=== PATIENT | female | born 1945 | race Caucasian/White ===

== ENCOUNTER 2018-03-23 06:24 | Day surgery (SDC) | payer OTHER ==
--- NOTE | 2018-03-15 16:36 | EKG ---
Test Date: 2018-03-15 Test Time: 16:01:05 Superintendent Job: DAPHNE MEASUREMENT RESULTS: Intervals: Rate: 68 CO: 154 QRSD: 78 QT: 394 QTc: 418 [place]: P: 63 CO: 154 QRS: 48 T: 53 INTERPRETIVE STATEMENTS: Normal sinus rhythm Normal ECG No previous ECG available for comparison Electronically Signed On 03-15-18 16:35:45 CDT by Kiet Saleem
[2018-03-15 16:57] LABS: Absolute Lymphocytes (CBC) 1.4 K/uL (0.7-4.9); Absolute Monocytes 0.3 K/uL (0.1-1.3); Eosinophils % 3.2 % (0-4.4); Hematocrit 44.5 % (36.0-45.0); Lymphocytes % 27.9 % (15.3-44.8); MCH 29.6 pg (27.0-35.0); MPV 8.9 fL (7.6-11.3); Monocytes % 6.6 % (3.3-12.3); RBC Red Blood Cell Count 5.06 M/uL (3.86-4.86)
[2018-03-15 17:01] LABS: Protime INR 0.89
[2018-03-15 17:08] LABS: Potassium 3.7 mmol/L (3.5-5.1)
--- OUTSIDE RECORDS SUMMARY | 2018-03-23 06:26 | XMS REPORT ---
:1945 Author Organization e[employer] Care Team Providers Name Role Phone Wiliam Pike Provider Role Unavailable Allergies, Adverse Reactions, Alerts Substance Reaction Event Type N.K.D.A. Info Not Available Non Drug Allergy Problems Problem Type Condition Code Onset Dates Condition Status Assessment Pain of right thumb M79.644 Active Assessment Trigger thumb of right hand M65.311 Active Assessment Right hand pain M79.641 Active Medications Medication Code System Code Instructions Start Date End Date Status Dosage Anastrozole [facility] 11979173412 1 MG Oral Active not defined Results No Known Results Summary Purpose eClinicalWorks Submission
--- OUTSIDE RECORDS SUMMARY | 2018-03-23 06:26 | XMS REPORT ---
:1945 Author Organization [employer] Care Team Providers Name Role Phone Wiliam Pike Provider Role Unavailable Allergies No Known Allergies Problems No Known Problems Medications Medication Code Code Instructions Start End Date Status Dosage System Date Tylenol with [facility] 14100918619 300-30 MG Orally Mar 15, Active 1 tablet Codeine #3 every 6 hrs 2018 as needed Results No Known Results Summary Purpose eClinicalWorks Submission
--- OUTSIDE RECORDS SUMMARY | 2018-03-23 06:26 | XMS REPORT ---
:1945 Author Organization e[employer] Care Team Providers Name Role Phone Wiliam Pike Provider Role Unavailable Allergies No Known Allergies Problems No Known Problems Medications Medication Code Code Instructions Start End Date Status Dosage System Date Tramadol HCl [facility] [id number] 50 MG Orally Mar 22, Active 1 tablet every 6 hrs 2017 as needed Results No Known Results Summary Purpose eClinicalWorks Submission
[2018-03-23] MEDS ORDERED: Ringers Lactate 1,000 ML IV ONE (06:39)
[2018-03-23] MEDS ORDERED: CEFAZOLIN/SWI 1gm 1 GM/10 ML SYR ONE (06:39)
[2018-03-23] MEDS ORDERED: FENTANYL CITR 100 MCG/2 ML ONE (07:09)
[2018-03-23] MEDS ORDERED: PROPOFOL 200 MG/20 ML VIAL IV ONE (07:09)
[2018-03-23] MEDS ORDERED: LIDOCAINE 1% MPF 2 ML AMPULE ONE (07:12)
[2018-03-23] MEDS ORDERED: BUPIVACAINE 0.25% PF 10 ML VIAL ONE (07:14)
[2018-03-23] MEDS ORDERED: ONDANSETRON HCL 40 MG/20 ML VIAL ONE (07:52)
--- NOTE | 2018-03-23 08:33 | P.BOP ---
Preoperative diagnosis: right trigger thumb Postoperative diagnosis: same Primary procedure: right thumb A1 bossman release Loading Supervisor: NONE,NONE Estimated blood loss: <5 cc Specimen: none Findings: see dictation Anesthesia: General Complications: None Implants: none Fluids & blood products: per anesthesia; TT: 23 mins @ 250 mmHg Transferred to: Recovery Room Condition: Good
--- NOTE | 2018-03-23 20:59 | OP ---
Date of Procedure: 03/23/2018 Surgeon: Wiliam Pike MD Preoperative Diagnosis: Right thumb trigger digit. Postoperative Diagnosis: Right thumb trigger digit. Procedure Performed: Right thumb A1 bossman release. Anesthesia: General LMA. Fluids: Per Anesthesia record. Estimated Blood Loss: Less than 5 cc. Tourniquet Time: 23 minute at 250 mmHg. Complications: None. Implants: None. Indication For Procedure: Nancy is a 73-year-old female who presented to my clinic with signs and s ymptoms consistent with a right trigger thumb. The patient failed conservative treatment measures in cluding corticosteroid injection. I discussed with the patient at length risks and benefits associat ed with operative and nonoperative treatment. She expressed understanding and elected to proceed wit operative treatment. Description Of Procedure: After informed consent was obtained, the patient was identified in the pre operative holding area. The right thumb was marked. The patient was then taken back to the operatin g room, transferred to the operating table in the supine fashion, placed under general anesthesia. T he right upper extremity was then prepped and draped in usual sterile fashion. A time-out was initidavid rich. Correct patient and procedure confirmed and identified. The patient did receive her preoperati ve prophylactic antibiotics. The right upper extremity was then exsanguinated using an Esmarch and t he tourniquet was inflated to 250 mmHg. A 1 cm incision was made over the thenar crease over MCP abraham nt. The radial digital nerve of the thumb was identified and gently retracted radially with the Vonnie ell retractor. Dissection was taken down and the A1 bossman using a tenotomy. The A1 bossman was iden tified and released using a 15-blade, both proximally and distally, and portion of tendon sheath was removed. The thumb was then placed through full range of motion. There was no triggering or tension of the thumb. The flexor tendon was then gently brought out through the skin incision. There was f ull excursion of tendon and thumb without any triggering noted. The wound was then irrigated thoroug hly with normal saline, and the incision was approximated using a 5-0 Prolene. Sterile dressings wer e applied. The patient was awakened and transferred to PACU in stable condition. Postoperative Plan: She will be weightbear as tolerated without any hesitancy. [facility] suture removal. CV/MODL Voice ID: [id number] Report ID: [id number]
== END 2018-03-23 10:10 | disposition home or self-care (01) ==
LOC: OR 06:24
PROVIDERS: ATTEND Orthopaedic Surgery Sports Medicine
PROC: 0LN70ZZ Release Right Hand Tendon, Open Approach (ICD-10-PCS; principal; 2018-03-23 07:30)
DX: M65.311 Trigger thumb, right thumb (principal); Z85.3 Personal history of malignant neoplasm of breast
CPT/HCPCS: 26055; 36415; 80048; 85025; 85610; 85730; 93005; J0690; J2001; J2405; J3010